=== PATIENT | female | born 1955 | race Caucasian/White ===

== ENCOUNTER 2020-03-31 14:29 | Emergency (ER) | payer MEDICARE, MEDICAID ==
[~2020-03-31] VITALS: Ht 165.1 cm; Wt 49.6 kg
[2020-03-31] MEDS ORDERED: MECLIZINE CHEWABLE 25 MG TAB PO ONE (15:30)
[2020-03-31 15:42] LABS: BASOPHILS # (AUTO) 0.02 x10^3/uL (0-0.1); BASOPHILS % (AUTO) 0 % (0-1); EOSINOPHILS # (AUTO) 0.03 x10^3/uL (0-0.4); EOSINOPHILS % (AUTO) 1 % (1-7); LYMPHOCYTES # (AUTO) 1.34 x10^3/uL (1-3.4); LYMPHOCYTES % (AUTO) 29 % (22-44); MD NO; MEAN CORPUSCULAR HEMOGLOBIN 28.5 pg (27.0-34.8); MEAN CORPUSCULAR VOLUME 86.3 fL (80-100); MEAN PLATELET VOLUME 7.7 fL (7.4-10.4); MONOCYTES # (AUTO) 0.41 x10^3/uL (0.2-0.8); MONOCYTES % (AUTO) 9 % (2-9); NEUTROPHILS # (AUTO) 2.78 x10^3/uL (1.8-6.8); NEUTROPHILS % (AUTO) 61 % (42-75); PLATELET COUNT 354 x10^3/uL (130-400); RED BLOOD COUNT 4.85 x10^6/uL (3.82-5.3); RED CELL DISTRIBUTION WIDTH 13.4 % (9.6-15.2)
[2020-03-31] MEDS ORDERED: MECLIZINE CHEWABLE 25 MG TAB ONE (15:47)
[2020-03-31 15:48] LABS: ALBUMIN 3.6 g/dL (3.4-5.0); ANION GAP 7 mmol/L (5-15); CALCIUM 8.5 mg/dL (8.5-10.1); CHLORIDE 106 mmol/L (98-107); CREATININE 0.63 mg/dL (0.55-1.02)
[2020-03-31 16:28] VITALS: BP 124/65
== END 2020-03-31 16:30 | disposition home or self-care (01) ==
LOC: ED 16:01
DX: H83.03 Labyrinthitis, bilateral (principal); R94.31 Abnormal electrocardiogram [ECG] [EKG]
CPT/HCPCS: 36415; 80048; 82040; 85025; 93005; 99284